=== PATIENT | female | born 1985 | race Caucasian/White ===

== ENCOUNTER 2016-05-17 13:37 | Emergency (ER) | payer OTHER ==
[~2016-05-17] VITALS: Ht 160 cm; Wt 88.0 kg
[~2016-05-17 13:37] MED LIST: ALPR.25 PO; IBUP-232 PO; IMIT25TA PO
[2016-05-17 13:45] VITALS: BP 142/90; PULSE 103; RESP 16; TEMP 98.3; O2SAT 97
--- NOTE | 2016-05-17 15:21 | PD ---
HPI Chief Complaint: Injury Time Seen by Provider: 15:15 Travel History International Travel<30 days: No Contact w/Intl Traveler<30days: No Traveled to known affect area: No History of Present Illness HPI 30-year-old female presents to the emergency department for evaluation of right great toe injury that occurred yesterday evening. Her great toe on a piece of furniture. She has increased pain, swelling, ecchymosis symptoms. She denies any chronic medical problems. Her only Current medication is control. She denies any chance of . No other complaints or symptoms at this time. [facility] Past Medical History Diminished Hearing: No Migraines: Yes ?: Not LMP: 3 WEEKS AGO-ON BCP Past Surgical History Abdominal Surgery: Yes (KIDNEY SURGERY FOR REMOVAL OF DEFECTS) Eye Surgery: Yes (EYE SURGERIES X 2 (AT 6 MONTHS OLD AND 6 YEARS OLD)) Other Surgery: Yes (wisdom teeth removal) Social History Alcohol Use: Yes (1-2 drinks per day) Tobacco Use: No (LESS THAN 1 PACK PER WEEK) Substance Use: No Allergies-Medications (Allergen,Severity, Reaction): Coded Allergies: No Known Allergies (Verified , 05/17/16) Reported Meds & Prescriptions Reported Meds & Active Scripts Active No Active Prescriptions or Reported Medications Review of Systems Except as stated in HPI: all other systems reviewed are Neg Physical Exam Narrative GENERAL: Well-developed well-nourished female patient, ambulatory. Afebrile. SKIN: Warm and dry. No lacerations or abrasions. Ecchymosis noted to right great toe. HEAD: Normocephalic. Atraumatic. EYES: No scleral icterus. No injection or drainage. NECK: Supple, trachea midline. No JVD or lymphadenopathy. CARDIOVASCULAR: Regular rate and rhythm without murmurs, gallops, or rubs. Right tibial pulses 2+. Capillary refill is less than 2 seconds to the digits of the right foot. RESPIRATORY: Breath sounds equal bilaterally. No accessory muscle use. Lungs sounds are clear to auscultation. GASTROINTESTINAL: Abdomen soft, non-tender, nondistended. MUSCULOSKELETAL: No cyanosis, or edema. Patient has full sensation distal right lower extremity. She has reduced range of motion of the right great toe due to pain. BACK: Nontender without obvious deformity. No CVA tenderness. Data Data Last Documented VS Vital Signs Date Time Temp Pulse Resp B/P Pulse Ox O2 Delivery O2 Flow Rate FiO2 05/17/16 15:13 16 97 Room Air 05/17/16 13:45 98.3 103 142/90 Orders Foot, Complete ([id number]) (05/17/16 ) Ice/Cold Pack (05/17/16 15:14) MDM Medical Decision Making Medical Screen Exam Complete: Yes Emergency Medical Condition: Yes Medical Record Reviewed: Yes Interpretation(s) Last Impressions Foot X-Ray 05/17/16 0000 Signed Impressions: Service Date/Time: , May 17, 2016 15:16 - CONCLUSION: 1. No acute bony abnormality identified. Angel Taveras MD Differential Diagnosis Fracture versus dislocation versus sprain versus contusion Narrative Course 30-year-old female presents to the emergency department for evaluation of right great toe injury that occurred yesterday evening. X-ray of the right foot is ordered and pending. X-ray of the right foot shows no acute bony abnormality identified. Patient is provided postop shoe. She'll be discharged prescription for ibuprofen. She is instructed to elevate and ice. She is agreeable to this plan. The patient was discharged in stable condition with instructions, including return instructions and follow up instructions. Diagnosis Primary Impression: Contusion of great toe, right Qualified Code: S90.111A - Contusion of right great toe without damage to nail , initial encounter Referrals: Primary Care Physician call for appointment Patient Instructions: Contusion in Adults (ED), General Instructions Additional Instructions: Wear postop shoe as needed for support. Ice for 20 minutes 4-5 times daily. Elevate. Take ibuprofen as instructed as needed with food for pain. Follow-up with your primary care physician. Return to the emergency department for any acute worsening of symptoms. Med/Other Pt SpecificInfo: Prescription(s) given Scripts Ibuprofen 600 Mg [id number] Mg PO TID PRN (PAIN SCALE 1 TO 10) #21 TAB Ref 0 Prov:JarodGalilea VILLALOBOS 05/17/16 Disposition: 01 DISCHARGE HOME Condition: Stable Galilea Olivera May 17, 2016 15:21
--- NOTE | 2016-05-17 15:51 | RADHPO ---
EXAM DATE/TIME: 05/17/2016 15:16 [facility] COMPARISON: No previous studies available for comparison. INDICATIONS : Patient states she hit her great toe on the sofa last night, pain and bruising. MEDICAL HISTORY : Right foot 5th digit fracture SURGICAL HISTORY : None. ENCOUNTER: Initial ACUITY: 2 days PAIN SCORE: 5/10 LOCATION: Right Foot FINDINGS: Three view examination of the right foot demonstrates no soft tissue swelling, dislocation, or fractu re. The tarsal bones appear intact. The interphalangeal and metatarsophalangeal joints are intact. The calcaneus is intact. Bony mineralization is normal. CONCLUSION: 1. No acute bony abnormality identified. Angel Taveras MD on May 17, 2016 at 15:48 Board Certified Radiologist. This report was verified electronically.
[2016-05-17] MEDS ORDERED: IBUP-232 PO (16:16)
[2016-05-17 16:42] VITALS: BP 138/86
== END 2016-05-17 16:44 | disposition home or self-care (01) ==
LOC: PHEFT 13:37
DX: S90.111A Contusion of right great toe without damage to nail, initial encounter (principal); Z72.0 Tobacco use; F10.10 Alcohol abuse, uncomplicated; W22.8XXA Striking against or struck by other objects, initial encounter; Y93.9 Activity, unspecified; Y92.9 Unspecified place or not applicable; Y99.9 Unspecified external cause status
CPT/HCPCS: 73630; 99283; L3260